=== PATIENT | female | born 1950 | race Caucasian/White ===

== ENCOUNTER 2016-11-29 08:57 | Day surgery (SDC) | payer MEDICARE, MEDICAID ==
[~2016-11-29] VITALS: Ht 152.4 cm; Wt 65.3 kg
[~2016-11-29 08:57] MED LIST: ACET-2178 PO; ASPI-1159 PO; GLIM2TAB2 PO; IBUP-1509 PO; METF10002 PO; NITR0.4T3 SL; SIMV20TA6 PO
[2016-11-29] MEDS ORDERED: CIPROFLOXACIN 0.3% OPHTH SOLN 2.5ML RIGHTEYE ONE (09:45)
[2016-11-29] MEDS ORDERED: SODIUM CHLORIDE 0.9% 1,000 ML IV SCH (09:45)
[2016-11-29] MEDS ORDERED: NEO/POLYMYX B SULF/DEXAMETH OPHTH OINT 3.5GM ONE (10:43)
[2016-11-29] MEDS ORDERED: LIDOCAINE HCL 2%/EPINEPHRINE 1:100,000 20 ML VIAL INFIL ONE (10:43)
[2016-11-29] MEDS ORDERED: BALANCED SALT IRRIG SOLN 15ML ONE (10:43)
[2016-11-29] MEDS ORDERED: CIPROFLOXACIN 0.3% OPHTH SOLN 2.5ML ONE (10:43)
[2016-11-29] MEDS ORDERED: BUPIVACAINE HCL/PF 0.75% (7.5MG/ML) 10ML ONE (10:43)
[2016-11-29] MEDS ORDERED: TOBRAMYCIN SULFATE 80MG/2ML 30ML ONE (10:55)
[2016-11-29] MEDS ORDERED: METHYLPREDNISOLONE SOD SUCC 40 MG/ML VIAL ONE (10:55)
[2016-11-29] MEDS ORDERED: ONDANSETRON HCL 4MG/2ML VIAL IV PRN (11:00)
[2016-11-29] MEDS ORDERED: LABETALOL HCL 20MG/4ML CARPUJECT IV PRN (11:00)
[2016-11-29] MEDS ORDERED: HYDROMORPHONE HCL/PF 2MG/ML CPJ IV PRN (11:00)
[2016-11-29] MEDS ORDERED: MEPERIDINE HCL/PF 25MG/ML CPJ IV PRN (11:00)
[2016-11-29] MEDS ORDERED: IBUP-1509 PO (11:21)
[2016-11-29] MEDS ORDERED: SIMV20TA6 PO (11:21)
[2016-11-29] MEDS ORDERED: METF10002 PO (11:21)
[2016-11-29] MEDS ORDERED: GLIM2TAB2 PO (11:21)
[2016-11-29] MEDS ORDERED: ASPI-1159 PO (11:21)
[2016-11-29] MEDS ORDERED: ACET325C PO (11:21)
[2016-11-29] MEDS ORDERED: NITR0.4T3 SL (11:21)
[2016-11-29] MEDS ORDERED: ACETAMINOPHEN WITH CODEINE 300/30MG TABLET PO PRN (12:00)
[2016-11-29 12:08] VITALS: BP 140/70
== END 2016-11-29 13:05 | disposition home or self-care (01) ==
LOC: OR 08:57
PROVIDERS: ATTEND Ophthalmology
DX: H11.001 Unspecified pterygium of right eye (principal); E11.9 Type 2 diabetes mellitus without complications; E78.00 Pure hypercholesterolemia, unspecified
CPT/HCPCS: 65420; 82962; 88304; J2920; J3260; J3490; J7030